=== PATIENT | male | born 1965 | race African-American/Black ===

== ENCOUNTER 2020-02-26 12:18 | Emergency (ER) | payer OTHER ==
[2020-02-26] MEDS ORDERED: DIPHTH,PERTUSS(ACELL),TET 0.5 ML DISP.SYRIN IM ONE ×2 (12:48→13:07)
--- NOTE | 2020-02-26 12:50 | PDOC ---
Rapid Medical Evaluation Chief Complaint: Laceration Time Seen by Provider: 02/26/20 12:48 Medical Evaluation: Allergies Allergy/AdvReac Type Severity Reaction Status Date / Time No Known Allergies Allergy Verified 02/26/20 12:47 02/26/20 12:48 CC: lac to left hand, unknown last tdap Exam: noted 3 cm lac to lateral aspect of left 2 nd digit, no decreased ROM or strength Plan: FT Discharge Disposition - Diagnosis Finger laceration - Referrals - Patient Instructions - Post Discharge Activity
[2020-02-26 12:52] VITALS: BP 139/88; PULSE 100; TEMP 97.9; BMI 27.4
--- NOTE | 2020-02-26 13:28 | PDOC ---
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 Patient does not recall last tetanus vaccine. Denies any other symptoms. Denies numbness or tingling sensation to fingers or hand or difficulty moving hand Timing/Duration: reports: just prior to arrival Past History - Medical History Allergies/Adverse Reactions: Allergies Allergy/AdvReac Type Severity Reaction Status Date / Time No Known Allergies Allergy Verified 02/26/20 12:47 Home Medications: Ambulatory Orders Amox-Tr/K Cl [Augmentin - 875Mg Tablet] 1 tab PO BID #14 tablet 02/26/20 Ibuprofen 800 mg PO Q8H PRN #20 tablet 02/26/20 Asthma: Yes COPD: No - Immunization History Immunization Up to Date: No - Psycho-Social/Smoking History Smoking History: Never smoked - Substance Abuse Hx (Audit-C & DAST Scrn) How often the patient has a drink containing alcohol: Never Score: In Men: 4 or > Positive; In Women: 3 or > Positive: 0 Screen Result (Pos requires Nsg. Audit-10AR): Negative Review of Systems - Review of Systems Able to Perform ROS?: Yes Is the patient limited French proficient: No Constitutional: No: Chills, Fever, Malaise HEENTM: No: Symptoms Reported, See HPI, Eye Pain, Blurred Vision, Tearing, Recent change in vision, Double Vision, Cataracts, Ear Pain, Ocular Prothesis, Ear Discharge, Nose Pain, Nose Congestion, Tinnitus, Nose Bleeding, Hearing Loss, Throat Pain, Throat Swelling, Mouth Pain, Dental Problems, Difficulty Swallowing, Mouth Swelling, Other Respiratory: No: Symptoms reported, See HPI, Cough, Orthopnea, Shortness of Breath, SOB with Exertion, SOB at Rest, Stridor, Wheezing, Productive cough, Hemoptysis, Other Cardiac (ROS): No: Symptoms Reported Musculoskeletal: Yes: Symptoms Reported, See HPI, Muscle Pain (Left hand pain over laceration) Integumentary: Yes: Symptoms Reported, See HPI, Other (Laceration to left hand) Neurological: No: Symptoms reported, Numbness, Paresthesia, Tingling, Weakness All Other Systems: Reviewed and Negative *Physical Exam - Vital Signs Last Vital Signs Temp Pulse Resp BP Pulse Ox 97.9 F 100 H 20 139/88 99 02/26/20 12:47 02/26/20 12:47 02/26/20 12:47 02/26/20 12:47 02/26/20 12:47 - Physical Exam 02/26/20 13:33 GENERAL: Well developed, well nourished. Awake and alert. No acute distress. PULMONARY: No evidence of respiratory distress. MUSCULOSKELETAL : Moderate tenderness over webspace of left thumb and index finger over laceration area. Full range of motion of fingers and hand. Normal strength to left thumb and index finger SKIN: Warm and dry. Normal capillary refill. 3 cm superficial linear laceration to webspace of left thumb extending up to base of lateral aspect of left index finger with minimal bleeding. No visible deformity NEUROLOGICAL: Alert, awake, appropriate. No motor deficits in the lower extremities. Gait is normal without ataxia. PSYCHIATRIC: Cooperative. Good eye contact. Appropriate mood and affect. General Appearance: Yes: Nourished, Appropriately Dressed. No: Apparent Distress Procedures - Laceration/Wound Repair Left Anterior Plantar Finger 1st digit Wound Length: 2.6 to 5.0 cm (3cm) Wound Explored: no foreign body present Wound's Depth, Shape: superficial, linear Irrigated w/ Saline: Yes Betadine Prep: Yes Anesthesia: 1% Lidocaine Amount of Anesthetic (ccs): 2 Wound Repaired With: Sutures Suture Size/Type: 4:0, nylon Number of Sutures: 7 Layer Closure: No Sterile Dressing Applied: Yes Splint Applied: No Sling Applied: No Progress: 02/26/20 13:32 Wound irrigated with normal saline and infiltrated with 2 cc 1% lidocaine. Wound closed with 7 interrupted 4-0 nylon sutures with close well approximation. Bacitracin applied to wound and wound covered adhesive bandage. Patient tolerated procedure well and left room without complication. 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 Patient does not recall last tetanus vaccine. Denies any other symptoms. Denies numbness or tingling sensation to fingers or hand or difficulty moving hand Exam significant for 3 cm linear superficial laceration to webspace of left thumb and index finger extending to radial lateral aspect of left index finger with minimal bleeding. Full range of motion of finger. 5 out of 5 strength of fingers. Wound irrigated with normal saline and infiltrated with 2 cc 1% lidocaine. Wound closed with 7 interrupted 4-0 nylon sutures with close well approximation. Bacitracin applied to wound and wound covered adhesive bandage. Patient tolerated procedure well and left room without complication. Patient educated on home wound care and stable for discharge Augmentin antibiotics twice daily for a week for infection prophylaxis with advised to do bacitracin to wound twice a day with follow-up in 1 week for suture removal. Patient stable for discharge Discharge - Discharge Information Problems reviewed: Yes Clinical Impression/Diagnosis: Finger laceration Qualifiers: Encounter type: initial encounter Finger: thumb Damage to nail status: without damage Foreign body presence: without foreign body Laterality: left Qualified Code(s): S61.012A - Laceration without foreign body of left thumb without damage to nail, initial encounter Laceration of left hand Qualifiers: Encounter type: initial encounter Foreign body presence: without foreign body Qualified Code(s): S61.412A - Laceration without foreign body of left hand, initial encounter Condition: Stable Disposition: HOME - Admission No - Additional Discharge Information Prescriptions: Amox-Tr/K Cl [Augmentin - 875Mg Tablet] 1 tab PO BID #14 tablet Ibuprofen 800 mg PO Q8H PRN #20 tablet PRN Reason: pain - Follow up/Referral - Patient Discharge Instructions Patient Printed Discharge Instructions: DI for Laceration Repair Additional Instructions: Keep wound clean and dry for the next 24 hours. Apply bacitracin or Neosporin to wound twice a day. Take prescribed antibiotics and finish. Follow-up urine 1 week for suture removal with either back here or with your PCP or any urgent care - Post Discharge Activity Work/Back to School Note: Back to Work
== END 2020-02-26 13:40 | disposition home or self-care (01) ==
LOC: JERFT 12:18
PROC: 3E0234Z Introduction of Serum, Toxoid and Vaccine into Muscle, Percutaneous Approach (ICD-10-PCS; principal; 2020-02-26)
PROC: 0HQGXZZ Repair Left Hand Skin, External Approach (ICD-10-PCS; principal; 2020-02-26)
DX: S61.412A Laceration without foreign body of left hand, initial encounter (principal); W22.8XXA Striking against or struck by other objects, initial encounter
CPT/HCPCS: 90715; 99283-25

== ENCOUNTER 2020-03-06 10:30 | Emergency (ER) | payer OTHER ==
[2020-03-06 10:36] VITALS: BP 128/81; PULSE 99; TEMP 98; BMI 26.8
--- NOTE | 2020-03-06 10:38 | PDOC ---
Rapid Medical Evaluation Chief Complaint: Suture/Staple Removal(Here) Medical Evaluation: Allergies Allergy/AdvReac Type Severity Reaction Status Date / Time No Known Allergies Allergy Verified 03/06/20 10:36 Vital Signs Temp Pulse Resp BP Pulse Ox 98.0 F 99 H 17 128/81 98 03/06/20 10:34 03/06/20 10:34 03/06/20 10:34 03/06/20 10:34 03/06/20 10:34 03/06/20 10:37 54 yo M presents for suture removal of L hand. VSS A/P: suture removal fast track
--- NOTE | 2020-03-06 10:56 | PDOC ---
Suture Removal/Wound Check HPI - History of Present Illness Chief Complaint: Suture/Staple Removal(Here) Stated Complaint: SUTURE/STAPLE REMOVAL Time Seen by Provider: 03/06/20 10:42 History Source: Yes: Patient Treated at: [facility] Date of Last ED visit: 02/26/20 - Previous ED Treatment Type of procedure performed on last visit: Yes: Laceration Repair Tetanus Immunization: Yes: Up to Date Past History - Medical History Allergies/Adverse Reactions: Allergies Allergy/AdvReac Type Severity Reaction Status Date / Time No Known Allergies Allergy Verified 03/06/20 10:36 Home Medications: Ambulatory Orders Amox-Tr/K Cl [Augmentin - 875Mg Tablet] 1 tab PO BID #14 tablet 02/26/20 Ibuprofen 800 mg PO Q8H PRN #20 tablet 02/26/20 Asthma: Yes COPD: No - Immunization History Immunization Up to Date: No - Psycho-Social/Smoking History Smoking History: Never smoked Have you smoked in the past 12 months: No Information on smoking cessation initiated: No - Substance Abuse Hx (Audit-C & DAST Scrn) How often the patient has a drink containing alcohol: Never Score: In Men: 4 or > Positive; In Women: 3 or > Positive: 0 Screen Result (Pos requires Nsg. Audit-10AR): Negative In the last yr the pt used illegal drug/Rx for NonMed reason: No Score: Yes response is considered Positive: 0 Screen Result (Positive result requires Nsg. DAST-10): Negative *Review of Systems - Review of Systems Constitutional: No: Chills, Fever *Physical Exam - Vital Signs Last Vital Signs Temp Pulse Resp BP Pulse Ox 98.0 F 99 H 17 128/81 98 03/06/20 10:34 03/06/20 10:34 03/06/20 10:34 03/06/20 10:34 03/06/20 10:34 - Physical Exam General Appearance: Yes: Appropriately Dressed. No: Apparent Distress HEENT: positive: Normal Voice Neck: positive: Supple Respiratory/Chest: negative: Respiratory Distress Extremity: positive: Other (well healed laceration to L hand w/ sutures intact) Integumentary: positive: Dry, Warm Neurologic: positive: Fully Oriented, Alert, Normal Mood/Affect Medical Decision Making - Medical Decision Making 03/06/20 11:16 Here for suture removal. Wound well healing w/ no e/o infection. 7 sutures removed without complications. Discharge - Discharge Information Problems reviewed: Yes Clinical Impression/Diagnosis: Visit for suture removal Condition: Good Disposition: HOME - Follow up/Referral - Patient Discharge Instructions Patient Printed Discharge Instructions: DI for Suture Removal - Post Discharge Activity
== END 2020-03-06 10:57 | disposition home or self-care (01) ==
LOC: JERFT 10:30
DX: Z48.02 Encounter for removal of sutures (principal)
CPT/HCPCS: 99281-25

== ENCOUNTER 2021-06-13 16:32 | Emergency (ER) | payer OTHER ==
[2021-06-13 16:52] VITALS: BP 146/91; PULSE 113; TEMP 99.4; BMI 23.6
[2021-06-13] MEDS ORDERED: morphine CARPU-JECT 4 MG/1 ML DISP.SYRIN IVPUSH ONE (20:13)
[2021-06-13] MEDS ORDERED: morphine SULFATE 4 MG/ML VIAL ONE (20:15)
== END 2021-06-13 20:21 | disposition home or self-care (01) ==
LOC: JER 16:32
PROC: 3E033NZ Introduction of Analgesics, Hypnotics, Sedatives into Peripheral Vein, Percutaneous Approach (ICD-10-PCS; principal; 2021-06-13)
DX: M25.551 Pain in right hip (principal)
CPT/HCPCS: 96374; 99284-25